=== PATIENT | male | born 1990 ===

== ENCOUNTER 2018-01-16 22:23 | Inpatient (IN) | payer MEDICAID, OTHER ==
--- NOTE | 2018-01-16 23:11 | C.PDOC ---
History Of Present Illness Patient was transferred from [facility] for psychiatric admission. Patient has Hx of schizophrenia. Denies any physical complaints. Time Seen by Provider: 01/16/18 22:34 Chief Complaint (Nursing): Psychiatric Evaluation History Per: Patient History/Exam Limitations: no limitations Onset/Duration Of Symptoms: Hrs Current Symptoms Are (Timing): Still Present Suicide/Self Injury Attempted (Context): None Modifying Factor(s): None Associated Symptoms: denies: Suicidal Thoughts, Suicidal Plan Involuntary Hold By: None Recent travel outside of the [place]: No Past Medical History Reviewed: Historical Data, Nursing Documentation, Vital Signs Vital Signs: Last Vital Signs Temp 98.1 F 01/17/18 06:26 Pulse 94 H 01/17/18 16:29 Resp 18 01/17/18 06:26 BP 134/89 01/17/18 16:29 Pulse Ox 99 01/17/18 00:17 - Medical History PMH: Schizophrenia Surgical History: No Surg Hx Family History: States: No Known Family Hx - Social History Hx Alcohol Use: Yes Hx Substance Use: No Review Of Systems Constitutional: Negative for: Fever, Chills Gastrointestinal: Negative for: Nausea, Vomiting, Diarrhea Skin: Negative for: Rash Neurological: Negative for: Weakness, Numbness Psych: Negative for: Suicidal ideation Physical Exam - Physical Exam Appears: Well, Non-toxic, No Acute Distress, Other (Calm and cooperative) Skin: Normal Color, Warm, Dry Head: Atraumatic, Normacephalic Eye(s): bilateral: Normal Inspection Oral Mucosa: Moist Neck: Supple Chest: Symmetrical, No Tenderness Cardiovascular: Rhythm Regular Respiratory: No Decreased Breath Sounds, No Rales, No Rhonchi, No Wheezing Gastrointestinal/Abdominal: Soft, No Tenderness Extremity: Normal ROM, No Deformity Extremity: Bilateral: Normal Color And Temperature, Normal ROM Neurological/Psych: Oriented x3, Normal Speech, Normal Cognition, Other (no focal deficits ) Gait: Steady ED Course And Treatment O2 Sat by Pulse Oximetry: 99 (RA) Pulse Ox Interpretation: Normal Disposition Doctor Will See Patient In The: Hospital Counseled Patient/Family Regarding: Studies Performed, Diagnosis - Disposition Disposition: HOSPITALIZED Disposition Time: 17:00 Condition: GOOD - Clinical Impression Clinical Impression: Schizophrenia - Scribe Statement The provider has reviewed the documentation as recorded by the Leonardoibjustin Rooney All medical record entries made by the Scribe were at my direction and personally dictated by me. I have reviewed the chart and agree that the record accurately reflects my personal performance of the history, physical exam, medical decision making, and the department course for this patient. I have also personally directed, reviewed, and agree with the discharge instructions and disposition.
--- NOTE | 2018-01-17 03:51 | PCM.BM ---
<Concepcion Aden - Last Filed: 01/17/18 03:44> Treatment Plan Problems - Problems identified on initial assessmt Depression Date Initiated: 01/17/18 Time Initiated: 00:45 Assessment reference: NA Status: Active Treatment assets and liabiliti Patient Assests: physically healthy, good support system, negotiates basic needs - Milieu Protocol Maintain good personal hygiene: daily Encourage regular showers, daily Remind patient to perform daily oral care, every shift Assist patient to perform ADL's Conduct patient checks and document Observation sheet: Q15 minutes Maintain personal safety: every shift Educate patient to report safety concerns to staff, every shift Monitor environment for contraband/sharps Medication safety: Monitor for expected outcome, potential side effects: every shift, Assess barriers to learning: every shift, Assess readiness for medication education: every shift <Jono Smith - Last Filed: 01/18/18 19:08> - Diagnosis (1) Schizoaffective disorder Status: Acute Interventions: * Assess/adjust medications daily and /or as needed * See patient on an individual basis 7x/week to assess status of hallucinations * Discuss risks, benefits, side effects and alternatives of medications * <Tiesha Wagner - Last Filed: 01/19/18 11:24> Family Contact Family involvement: Family/SO is involved Family contact: Patient declines to allow family contact at present - Goals for Treatment Patient goals for treatment: "I want to feel better." Discharge/Continuing Care - Education Needs Education Needs: Patient Medication, Patient Coping Skills - Discharge Discharge Criteria: Tolerates medication w/o severe side effects, No longer exhibiting s/s of withdrawal, Reduction of target symptoms Discharge to:: Home - Treatment Team Participation Discussed with Family/SO: No Was Patient/Family/SO present at Treatment Team Meeting: Yes
--- NOTE | 2018-01-17 13:22 | PCM.PSYCH ---
Initial Psychiatric Evaluation - Initial Psychiatric Evaluation Type of Admission: Voluntary Legal Status: Capacity Chief Complaint (in patient's own words): "Anxious" History of Present Illness and Precipitating Events: The patient is seen, chart reviewed and case discussed. This is a 27-year-old male, single with no child and lives with his mother now. He says he came from [place]. He is unemployed. The patient is here for severe anxiety and depression for the past month or more. He feels like he was a burden on his family and he felt suicidal. He denies suicidal feeling right now but he feels paranoid and very anxious. He is not on any psychiatric medications. He denies drugs and alcohol use. Past psych history: No admissions no suicide attempts but he was diagnosed with ADHD and saw a psychiatrist, mary Box. There was a report that the patient was diagnosed with high functioning autism, but patient denies Family psych history: Uncle with schizophrenia Medical history: Denies Current Medications: Active Medications Generic Name Dose Route Start Last Admin Trade Name Freq PRN Reason Stop Dose Admin Escitalopram Oxalate 5 mg 01/17/18 10:00 01/17/18 10:07 Lexapro PO 5 mg DAILY ECTOR Administration Hydroxyzine HCl 25 mg 01/17/18 09:11 Atarax PO Q4H PRN Anxiety Ibuprofen 400 mg 01/17/18 09:11 Motrin Tab PO Q6H PRN Pain, moderate (4-7) Trazodone HCl 50 mg 01/17/18 09:11 Desyrel PO HS PRN Insomnia Past Psychiatric History - Past Psychiatric History Previous Treatment History: None Pertinent Medical Hx (Current Medical&Sleep Prob, Allergies): Allergies Allergy/AdvReac Type Severity Reaction Status Date / Time No Known Allergies Allergy Verified 01/16/18 22:30 No Known Home Med 01/16/18 Review of Systems - Psychiatric Psychiatric: Abnormal Sleep Pattern, Anxiety, Change in Appetite, Depression, Difficulty Concentrating. absent: Hallucinations, Homicidal Ideation, Suicidal Ideation Mental Status Examination - Personal Presentation Personal Presentation: Looks younger than stated age - Affect Affect: Constricted (odd) - Motor Activity Motor Activity: Calm - Reliability in Providing Information Reliability in Providing Information: Fair - Speech Speech: Organized - Mood Mood: Depressed, Anxious - Formal Thought Process Formal Thought Process: Paranoia - Cognitive Functions Orientation: Person, Place, Situation, Time Sensorium: Alert Attention/Concentration: Easily distracted Abstract Thinking: [place] Estimate of Intelligence: Average Judgement: Intact, as evidence by: Insight regarding need for hospitalization Memory: Recent intact, as evidence by: Ability to recall events of the day, Remote intact, as evidenced by: Abilit to recall sig. life events - Risk Risk: Diminished functioning - Strength & Assets Inventory Strength & Assets Inventory: Cooperative - Limitations Limitations: Living alone DSM 5 DX - DSM 5 DSM 5 Diagnosis: Schizoaffective d/o - depressed ADHD r/o ASD - Recommended/Plan of Treatment Treatment Recommendations and Plan of Treatment: Start lexapro and also abilify or zyprexa Prn medications All risks, benefits and alternatives of medications, including no medications, discussed and the patient understood and agreed. Attend groups and activities Individual therapy Psychoeducation and support Encourage compliance with meds and after care Refer to outpatient program Teach healthy lifestyle methods, i.e. diet, exercise, meditation Smoking cessation 32 min Projected ELOS: 6-7 days Prognosis: good w treatment
--- NOTE | 2018-01-18 21:34 | PCM.PYCHPN ---
Psychiatric Progress Note - Psychiatric Progress Note Patient seen today, length of contact: 16 min Patient Chief Complaint: "I am confused" Problems Identified/Issues Discussed: The pt is seen, chart reviewed, case discussed with staff. The pt is compliant with medications and but feels like lexapro is making him worse (took one dose) He asks odd questions like "why is no one going to rastafari here? (locked psych unit!) or "I see people are all wearing black, why?" (they are not wearing black ) Affect is odd, inappropriate, grimaces. Needs more time to stabilize. After care discussed, support and psychoeducation given. Zyprexa started Medication Change: Yes (zyprexa started, cynthia. stopped) Medical Record Reviewed: Yes Mental Status Examination - Cognitive Function Orientation: Person, Place, Situation, Time Memory: Impaired Attention: Poor Concentration: Poor Association: Loose Fund of Knowledge: Poor - Mood Mood: Depressed, Anxious - Affect Affect: Constricted (odd) - Speech Speech: Appropriate - Formal Thought Process Formal Thought Process: Delusions, Paranoia - Suicidal Ideation Suicidal Ideation: No - Homicidal Ideation Homicidal Ideation: No Goal/Treatment Plan - Goal/Treatment Plan Need for Continued Stay: Discharge may exacerbated symptoms, Severe functional impairment Progress Toward Problem(s) and Goals/Treatment Plan: Start zyprexa, d/c lexapro Prn medications All risks, benefits and alternatives of medications, including no medications, discussed and the patient understood and agreed. Attend groups and activities Individual therapy Psychoeducation and support Encourage compliance with meds and after care Refer to outpatient program Teach healthy lifestyle methods, i.e. diet, exercise, meditation Smoking cessation
--- NOTE | 2018-01-19 11:24 | PCM.PYCHPN ---
Psychiatric Progress Note - Psychiatric Progress Note Patient seen today, length of contact: 16 min Patient Chief Complaint: Patient states that he is afraid someone is accessing his mind through broadcasted waves and that the FBI is after him. Problems Identified/Issues Discussed: Patient seen and evaluated, chart reviewed and discussed with the nurse. Patient remained disorganized and internally preoccupied. Patient still appears paranoid and delusional. He states that he is afraid someone is accessing his mind through broadcasted waves and that the FBI is after him. He also complains of restless sleep with nightmares and loss of focus during the day. Patient states that he is considering attending a congregational to help ease his thoughts. Patient remained isolated, confined and withdrawn. Patient is compliant with medications and denies any side effects. Symptoms are improving but need more time to stabilize. Support and psychoeducation given. Medication Change: Yes (increase zyprexa, start depakote) Medical Record Reviewed: Yes Mental Status Examination - Cognitive Function Orientation: Person, Place, Situation, Time Memory: Impaired Attention: Poor Concentration: Poor Association: Loose Fund of Knowledge: Poor - Mood Mood: Depressed, Anxious - Affect Affect: Constricted (odd) - Speech Speech: Appropriate - Formal Thought Process Formal Thought Process: Hallucinations, Delusions, Paranoia, Loosening of associations - Suicidal Ideation Suicidal Ideation: No - Homicidal Ideation Homicidal Ideation: No Goal/Treatment Plan - Goal/Treatment Plan Need for Continued Stay: Discharge may exacerbated symptoms, Severe functional impairment Progress Toward Problem(s) and Goals/Treatment Plan: Schizoaffective d/o - depressed ADHD r/o ASD Increase olanzapine 5 mg PO BID Start Depakote 250 mg PO BID Start Klonopin 1 mg PO BID Prn medications All risks, benefits and alternatives of medications, including no medications, discussed and the patient understood and agreed. Attend groups and activities Individual therapy Psychoeducation and support Encourage compliance with meds and after care Refer to outpatient program Teach healthy lifestyle methods, i.e. diet, exercise, meditation Smoking cessation - Smoking Cessation Smoking Cessation Initiated: No
[2018-01-20] MEDS: Divalproex 250 mg DR Tab PO SCH ×2 (09:52→17:24)
--- NOTE | 2018-01-20 10:52 | PCM.PYCHPN ---
Psychiatric Progress Note - Psychiatric Progress Note Patient seen today, length of contact: 16 min Patient Chief Complaint: Patient states that he is afraid someone is accessing his mind through broadcasted waves and that the FBI is after him. Problems Identified/Issues Discussed: Patient seen and evaluated, chart reviewed and discussed with the nurse. Patient is still disorganized and internally preoccupied after starting Depakote and Klonopin. Patient is still paranoid and delusional but less talkative than yesterday. He is complaining of stomach pain and believe it is from the new medication but denies nausea, vomiting, and diarrhea. He still feels he is being monitored but looks off into space when questioned further about his thoughts and disposition. Patient remained isolated, confined and withdrawn. Patient is compliant with medications. Symptoms are improving but need more time to stabilize. Support and psychoeducation given. Medication Change: Yes (increase zyprexa, start depakote) Medical Record Reviewed: Yes Mental Status Examination - Cognitive Function Orientation: Person, Place, Situation, Time Memory: Impaired Attention: Poor Concentration: Poor Association: Loose Fund of Knowledge: Poor - Mood Mood: Depressed, Anxious - Affect Affect: Constricted (odd) - Speech Speech: Soft, Pressured - Formal Thought Process Formal Thought Process: Hallucinations, Delusions, Paranoia, Loosening of associations - Suicidal Ideation Suicidal Ideation: No - Homicidal Ideation Homicidal Ideation: No Goal/Treatment Plan - Goal/Treatment Plan Need for Continued Stay: Discharge may exacerbated symptoms, Severe functional impairment Progress Toward Problem(s) and Goals/Treatment Plan: Schizoaffective d/o - depressed ADHD r/o ASD Continue medications olanzapine 5 mg PO BID Depakote 250 mg PO BID Klonopin 1 mg PO BID Prn medications All risks, benefits and alternatives of medications, including no medications, discussed and the patient understood and agreed. Attend groups and activities Individual therapy Psychoeducation and support Encourage compliance with meds and after care Refer to outpatient program Teach healthy lifestyle methods, i.e. diet, exercise, meditation Smoking cessation
[2018-01-21] MEDS: Divalproex 250 mg DR Tab PO SCH ×2 (10:24→17:22)
--- NOTE | 2018-01-21 10:57 | PCM.PYCHPN ---
Psychiatric Progress Note - Psychiatric Progress Note Patient seen today, length of contact: 16 min Patient Chief Complaint: Patient states that he is afraid someone is accessing his mind through broadcasted waves and that the FBI is after him. Problems Identified/Issues Discussed: Patient seen and evaluated, chart reviewed and discussed with the nurse. Patient remained isolated, confined and withdrawn. Patient remained disorganized and internally preoccupied. Patient states he has not had any side effects from the medications. Patient is compliant with medications. Symptoms are improving but need more time to stabilize. Support and psychoeducation given. Medication Change: Yes (increase zyprexa, start depakote) Medical Record Reviewed: Yes Mental Status Examination - Cognitive Function Orientation: Person, Place, Situation, Time Memory: Impaired Attention: Poor Concentration: Poor Association: Loose Fund of Knowledge: Poor - Mood Mood: Depressed, Anxious - Affect Affect: Constricted (odd) - Speech Speech: Soft, Pressured - Formal Thought Process Formal Thought Process: Hallucinations, Delusions, Paranoia, Loosening of associations - Suicidal Ideation Suicidal Ideation: No - Homicidal Ideation Homicidal Ideation: No Goal/Treatment Plan - Goal/Treatment Plan Need for Continued Stay: Discharge may exacerbated symptoms, Severe functional impairment Progress Toward Problem(s) and Goals/Treatment Plan: Schizoaffective d/o - depressed ADHD r/o ASD Continue medications olanzapine 5 mg PO BID Depakote 250 mg PO BID Klonopin 1 mg PO BID Prn medications All risks, benefits and alternatives of medications, including no medications, discussed and the patient understood and agreed. Attend groups and activities Individual therapy Psychoeducation and support Encourage compliance with meds and after care Refer to outpatient program Teach healthy lifestyle methods, i.e. diet, exercise, meditation Smoking cessation
[2018-01-22] MEDS: Divalproex 250 mg DR Tab PO SCH (09:51)
--- NOTE | 2018-01-22 11:36 | PCM.PYCHPN ---
Psychiatric Progress Note - Psychiatric Progress Note Patient seen today, length of contact: 16 min Patient Chief Complaint: Patient states that he is afraid someone is accessing his mind through broadcasted waves and that the FBI is after him. Problems Identified/Issues Discussed: Patient seen and evaluated, chart reviewed and discussed with the nurse. Patient appears more organized and less internally preoccupied. Patient started coming out of his room and started socializing. Patient is compliant with medications. Symptoms are improving but need more time to stabilize. Support and psychoeducation given. Medication Change: Yes (d/c zyprexa, start Prolixin) Medical Record Reviewed: Yes Mental Status Examination - Cognitive Function Orientation: Person, Place, Situation, Time Memory: Impaired Attention: WNL Concentration: Poor Association: Loose Fund of Knowledge: Poor - Mood Mood: Depressed, Anxious - Affect Affect: Constricted (odd) - Speech Speech: Soft, Pressured - Formal Thought Process Formal Thought Process: Hallucinations, Delusions, Paranoia, Loosening of associations - Suicidal Ideation Suicidal Ideation: No - Homicidal Ideation Homicidal Ideation: No Goal/Treatment Plan - Goal/Treatment Plan Need for Continued Stay: Discharge may exacerbated symptoms, Severe functional impairment Progress Toward Problem(s) and Goals/Treatment Plan: Schizoaffective d/o - depressed ADHD r/o ASD Continue medications D/C Olanzapine 5 mg PO BID Start Prolixin 5 mg PO BID Increase Depakote 500 mg PO BID D/C Klonopin 1 mg PO BID Prn medications All risks, benefits and alternatives of medications, including no medications, discussed and the patient understood and agreed. Attend groups and activities Individual therapy Psychoeducation and support Encourage compliance with meds and after care Refer to outpatient program Teach healthy lifestyle methods, i.e. diet, exercise, meditation Smoking cessation - Smoking Cessation Smoking Cessation Initiated: No
[2018-01-22] MEDS: Divalproex 500 mg DR Tab PO SCH (18:00)
[2018-01-23] MEDS: Divalproex 500 mg DR Tab PO SCH ×2 (10:43→17:36)
--- NOTE | 2018-01-23 11:31 | PCM.PYCHPN ---
Psychiatric Progress Note - Psychiatric Progress Note Patient seen today, length of contact: 16 min Patient Chief Complaint: Patient states that he is afraid someone is accessing his mind through broadcasted waves and that the FBI is after him. Problems Identified/Issues Discussed: Patient seen and evaluated, chart reviewed and discussed with the nurse. Patient appears more organized and less internally preoccupied. Patient has been socializing with other patients. He expresses interest in physics concepts and states he wishes to speak to a professor if he could. Patient is compliant with medications. Symptoms are improving but need more time to stabilize. Support and psychoeducation given. Medication Change: Yes (increase Prolixin) Medical Record Reviewed: Yes Mental Status Examination - Cognitive Function Orientation: Person, Place, Situation, Time Memory: Impaired Attention: WNL Concentration: Poor Association: Loose Fund of Knowledge: Poor - Mood Mood: Depressed, Anxious - Affect Affect: Constricted (odd) - Speech Speech: Soft, Pressured - Formal Thought Process Formal Thought Process: Hallucinations, Delusions, Paranoia, Loosening of associations - Suicidal Ideation Suicidal Ideation: No - Homicidal Ideation Homicidal Ideation: No Goal/Treatment Plan - Goal/Treatment Plan Need for Continued Stay: Discharge may exacerbated symptoms, Severe functional impairment Progress Toward Problem(s) and Goals/Treatment Plan: Schizoaffective d/o - depressed ADHD r/o ASD Continue medications Prolixin 10 mg PO BID Depakote 500 mg PO BID Prn medications All risks, benefits and alternatives of medications, including no medications, discussed and the patient understood and agreed. Attend groups and activities Individual therapy Psychoeducation and support Encourage compliance with meds and after care Refer to outpatient program Teach healthy lifestyle methods, i.e. diet, exercise, meditation Smoking cessation - Smoking Cessation Smoking Cessation Initiated: No
[2018-01-24] MEDS: Divalproex 500 mg DR Tab PO SCH ×2 (09:20→17:42)
--- NOTE | 2018-01-24 17:21 | PCM.PYCHPN ---
Psychiatric Progress Note - Psychiatric Progress Note Patient seen today, length of contact: 16 min Patient Chief Complaint: "Do you believe in free will?" Problems Identified/Issues Discussed: The pt is seen, chart reviewed, case discussed with staff. He is improving but still preoccupied with odd and metaphysical stuff and shinto. Compliant with meds - no SEs Psychoed and support given Medication Change: No Medical Record Reviewed: Yes Mental Status Examination - Cognitive Function Orientation: Person, Place, Situation, Time Memory: Impaired Attention: WNL Concentration: Poor Association: Loose Fund of Knowledge: Poor - Mood Mood: Depressed, Anxious - Affect Affect: Constricted (odd) - Speech Speech: Soft - Formal Thought Process Formal Thought Process: Delusions, Paranoia, Loosening of associations - Suicidal Ideation Suicidal Ideation: No - Homicidal Ideation Homicidal Ideation: No Goal/Treatment Plan - Goal/Treatment Plan Need for Continued Stay: Discharge may exacerbated symptoms, Severe functional impairment Progress Toward Problem(s) and Goals/Treatment Plan: Continue meds Prn medications All risks, benefits and alternatives of medications, including no medications, discussed and the patient understood and agreed. Attend groups and activities Individual therapy Psychoeducation and support Encourage compliance with meds and after care Refer to outpatient program Teach healthy lifestyle methods, i.e. diet, exercise, meditation Smoking cessation
[2018-01-25] MEDS: Divalproex 500 mg DR Tab PO SCH ×2 (09:05→18:18)
[2018-01-26] MEDS: Divalproex 500 mg DR Tab PO SCH ×2 (09:10→17:25)
--- NOTE | 2018-01-26 09:11 | PCM.PYCHPN ---
Psychiatric Progress Note - Psychiatric Progress Note Patient seen today, length of contact: 16 min Patient Chief Complaint: I AM LESS DEPRESSED BUT I STILL ANXIOUS Problems Identified/Issues Discussed: PT SEEN AND EXAMINED DISCUSSED WITH STAFF NON ADHERENCE MEDICATION SIDE EFFECTS Medical Problems: NOTHING ACUTE Diagnostic Results: REVIEWED DSM 5 Symptoms Update: ANHEDONIV ANERGIC AVOLITION Medication Change: No Medical Record Reviewed: Yes Mental Status Examination - Cognitive Function Orientation: Person, Place, Situation, Time Memory: Intact, Impaired Attention: WNL Concentration: Poor Association: WNL Fund of Knowledge: WNL - Mood Mood: Depressed, Anxious - Speech Speech: Soft - Formal Thought Process Formal Thought Process: Delusions, Paranoia, Loosening of associations - Suicidal Ideation Suicidal Ideation: No - Homicidal Ideation Homicidal Ideation: No Goal/Treatment Plan - Goal/Treatment Plan Need for Continued Stay: Discharge may exacerbated symptoms, Severe functional impairment Progress Toward Problem(s) and Goals/Treatment Plan: SCHIZOAFFECTIVE DISORDER PROLIXIN DEPAKOTE CBT ND SUPPORTIVE PSYCHOTHERAPY Estimated Date of D/C: 01/28/18 - Smoking Cessation Smoking Cessation Initiated: Yes
--- NOTE | 2018-01-26 09:39 | PCM.PYCHPN ---
Psychiatric Progress Note - Psychiatric Progress Note Patient seen today, length of contact: 16 min Patient Chief Complaint: Patient states that he has been thinking a lot about "free will," splitting prime numbers, and trying to make new discoveries in math and astrophysics. Problems Identified/Issues Discussed: Patient seen and evaluated, chart reviewed and discussed with the nurse. Patient appears more organized and less internally preoccupied. Patient has been socializing with other patients. He expresses interest in physics concepts and states he wishes to speak to a professor if he could. Patient is compliant with medications. Symptoms are improving but need more time to stabilize. Support and psychoeducation given. Medication Change: No Medical Record Reviewed: Yes Mental Status Examination - Cognitive Function Orientation: Person, Place, Situation, Time Memory: Intact, Impaired Attention: WNL Concentration: Poor Association: WNL Fund of Knowledge: WNL - Mood Mood: Depressed, Anxious - Affect Affect: Constricted (odd) - Speech Speech: Soft - Formal Thought Process Formal Thought Process: Delusions, Paranoia, Loosening of associations - Suicidal Ideation Suicidal Ideation: No - Homicidal Ideation Homicidal Ideation: No Goal/Treatment Plan - Goal/Treatment Plan Need for Continued Stay: Discharge may exacerbated symptoms, Severe functional impairment Progress Toward Problem(s) and Goals/Treatment Plan: Schizoaffective d/o - depressed ADHD r/o ASD Continue medications Prolixin 10 mg PO BID Depakote 500 mg PO BID Prn medications All risks, benefits and alternatives of medications, including no medications, discussed and the patient understood and agreed. Attend groups and activities Individual therapy Psychoeducation and support Encourage compliance with meds and after care Refer to outpatient program Teach healthy lifestyle methods, i.e. diet, exercise, meditation Smoking cessation Estimated Date of D/C: 01/28/18
--- NOTE | 2018-01-26 17:21 | PCM.BM ---
<Jennifer Wright - Last Filed: 01/26/18 17:21> Treatment Plan Problems - Problems identified on initial assessmt Depression Date Initiated: 01/17/18 Time Initiated: 00:45 Assessment reference: NA Status: Active Treatment assets and liabiliti Patient Assests: physically healthy, good support system, negotiates basic needs - Milieu Protocol Maintain good personal hygiene: daily Encourage regular showers, daily Remind patient to perform daily oral care, every shift Assist patient to perform ADL's Conduct patient checks and document Observation sheet: Q15 minutes Maintain personal safety: every shift Educate patient to report safety concerns to staff, every shift Monitor environment for contraband/sharps Medication safety: Monitor for expected outcome, potential side effects: every shift, Assess barriers to learning: every shift, Assess readiness for medication education: every shift Milieu Narrative: Schizoaffective d/o - depressed ADHD r/o ASD Continue medications Prolixin 10 mg PO BID Depakote 500 mg PO BID Prn medications All risks, benefits and alternatives of medications, including no medications, discussed and the patient understood and agreed. Attend groups and activities Individual therapy Psychoeducation and support Encourage compliance with meds and after care Refer to outpatient program Teach healthy lifestyle methods, i.e. diet, exercise, meditation Smoking cessation Family Contact Family involvement: Family/SO is involved Family contact: Patient declines to allow family contact at present - Goals for Treatment Patient goals for treatment: "I want to feel better." Discharge/Continuing Care - Education Needs Education Needs: Patient Medication, Patient Coping Skills - Discharge Discharge Criteria: Tolerates medication w/o severe side effects, No longer exhibiting s/s of withdrawal, Reduction of target symptoms Discharge to:: Home - Treatment Team Participation Patient/Family/SO Statement: Schizoaffective d/o - depressed ADHD r/o ASD Continue medications Prolixin 10 mg PO BID Depakote 500 mg PO BID Prn medications All risks, benefits and alternatives of medications, including no medications, discussed and the patient understood and agreed. Attend groups and activities Individual therapy Psychoeducation and support Encourage compliance with meds and after care Refer to outpatient program Teach healthy lifestyle methods, i.e. diet, exercise, meditation Smoking cessation Discussed with Family/SO: No Was Patient/Family/SO present at Treatment Team Meeting: Yes Treatment Plan Review - Problem Depression Time Initiated: 00:45 - Discharge / Continuing Care Discharge to:: Home, With Family Behavioral Health Services: Outpatient therapy Health Needs: Follow up care/test, Medications/Rx <Juanjo,Hien - Last Filed: 01/28/18 10:39> - Diagnosis (1) Schizoaffective disorder Status: Acute Interventions: * Assess/adjust medications daily and /or as needed * See patient on an individual basis 7x/week to assess status of hallucinations * Discuss risks, benefits, side effects and alternatives of medications *
[2018-01-27 06:51] VITALS: O2SAT 100
[2018-01-27] MEDS: Divalproex 500 mg DR Tab PO SCH ×2 (10:28→18:00)
--- NOTE | 2018-01-27 14:45 | PCM.PYCHPN ---
Psychiatric Progress Note - Psychiatric Progress Note Patient seen today, length of contact: 16 min Patient Chief Complaint: Patient states that he has been thinking a lot about "free will," splitting prime numbers, and trying to make new discoveries in math and astrophysics. Problems Identified/Issues Discussed: Patient seen and evaluated, chart reviewed and discussed with the nurse. Patient appears more organized and less internally preoccupied. He often stands in the hallway looking into space, but has been socializing with other patients more. He mentions that he "had a normal conversation" with a staff member yesterday and asks if he should try socializing more. He states he will work on not thinking about the idea of aliens so much. Patient is compliant with medications. Symptoms are improving but need more time to stabilize. Support and psychoeducation given. Medication Change: No Medical Record Reviewed: Yes Mental Status Examination - Cognitive Function Orientation: Person, Place, Situation, Time Memory: Intact, Impaired Attention: WNL Concentration: Poor Association: WNL Fund of Knowledge: WNL - Mood Mood: Depressed, Anxious - Affect Affect: Constricted (odd) - Speech Speech: Soft - Formal Thought Process Formal Thought Process: Delusions, Paranoia, Loosening of associations - Suicidal Ideation Suicidal Ideation: No - Homicidal Ideation Homicidal Ideation: No Goal/Treatment Plan - Goal/Treatment Plan Need for Continued Stay: Discharge may exacerbated symptoms, Severe functional impairment Progress Toward Problem(s) and Goals/Treatment Plan: Schizoaffective d/o - depressed ADHD r/o ASD Continue medications Prolixin 10 mg PO BID Depakote 500 mg PO BID Prn medications All risks, benefits and alternatives of medications, including no medications, discussed and the patient understood and agreed. Attend groups and activities Individual therapy Psychoeducation and support Encourage compliance with meds and after care Refer to outpatient program Teach healthy lifestyle methods, i.e. diet, exercise, meditation Smoking cessation Estimated Date of D/C: 01/28/18
[2018-01-28] MEDS: Divalproex 500 mg DR Tab PO SCH ×2 (09:44→18:26)
[2018-01-28] MEDS ORDERED: fluPHENAZine Decanoate 25 mg/mL Inj(5ml) IM ONE (10:39)
--- NOTE | 2018-01-28 10:40 | PCM.PYCHPN ---
Psychiatric Progress Note - Psychiatric Progress Note Patient seen today, length of contact: 16 min Patient Chief Complaint: Patient states that he has been thinking a lot about "free will," splitting prime numbers, and trying to make new discoveries in math and astrophysics. Problems Identified/Issues Discussed: Patient seen and evaluated, chart reviewed and discussed with the nurse. Patient appears more organized and less internally preoccupied. Patient is slightly more anxious today, expressing interest in finding a job when he gets out because he does not want to be a burden on hism other. He has been socializing with other patients and has been open to conversation about how he can pay less attention to the voices in his head Patient is compliant with medications and denies any side effects. Symptoms are improving but need more time to stabilize. Support and psychoeducation given. Medication Change: No Medical Record Reviewed: Yes Mental Status Examination - Cognitive Function Orientation: Person, Place, Situation, Time Memory: Intact, Impaired Attention: WNL Concentration: Poor Association: WNL Fund of Knowledge: WNL - Mood Mood: Anxious - Affect Affect: Constricted (odd) - Speech Speech: Soft - Formal Thought Process Formal Thought Process: Delusions, Paranoia, Loosening of associations - Suicidal Ideation Suicidal Ideation: No - Homicidal Ideation Homicidal Ideation: No Goal/Treatment Plan - Goal/Treatment Plan Need for Continued Stay: Discharge may exacerbated symptoms, Severe functional impairment Progress Toward Problem(s) and Goals/Treatment Plan: Schizoaffective d/o - depressed ADHD r/o ASD Continue medications Prolixin 10 mg PO BID Depakote 500 mg PO BID Prn medications All risks, benefits and alternatives of medications, including no medications, discussed and the patient understood and agreed. Attend groups and activities Individual therapy Psychoeducation and support Encourage compliance with meds and after care Refer to outpatient program Teach healthy lifestyle methods, i.e. diet, exercise, meditation Smoking cessation Estimated Date of D/C: 01/28/18
[2018-01-29] MEDS: Divalproex 500 mg DR Tab PO SCH ×2 (09:39→17:14)
[2018-01-30] MEDS: Divalproex 500 mg DR Tab PO SCH ×2 (09:56→17:04)
--- NOTE | 2018-01-30 10:06 | PCM.PYCHPN ---
Psychiatric Progress Note - Psychiatric Progress Note Patient seen today, length of contact: 16 min Patient Chief Complaint: Patient states that he has been thinking a lot about "free will," splitting prime numbers, and trying to make new discoveries in math and astrophysics. Problems Identified/Issues Discussed: Patient seen and evaluated, chart reviewed and discussed with the nurse. Patient appears more organized and less internally preoccupied. He states his running thoughts about extraterrestrials and alien technology have lessened. He feels he has gotten better at ignoring the thoughts when he does get them. He still complains of nightmares but states he is able to sleep them off. He states he would like to go home to his mother's apartment (she is currently out of the state) where he can have access to a computer and start looking for jobs and to work on his programming skills. He feels there is not much to do in his room and would like to be productive. Patient is compliant with medications and denies any side effects. Symptoms are improving but need more time to stabilize. Support and psychoeducation given. Medication Change: No Medical Record Reviewed: Yes Mental Status Examination - Cognitive Function Orientation: Person, Place, Situation, Time Memory: Intact, Impaired Attention: WNL Concentration: Poor Association: WNL Fund of Knowledge: WNL - Mood Mood: Anxious - Affect Affect: Constricted (odd) - Speech Speech: Soft - Formal Thought Process Formal Thought Process: Delusions, Loosening of associations - Suicidal Ideation Suicidal Ideation: No - Homicidal Ideation Homicidal Ideation: No Goal/Treatment Plan - Goal/Treatment Plan Need for Continued Stay: Discharge may exacerbated symptoms, Severe functional impairment Progress Toward Problem(s) and Goals/Treatment Plan: Schizoaffective d/o - depressed ADHD r/o ASD Continue medications Prolixin 10 mg PO BID Depakote 500 mg PO BID Prn medications All risks, benefits and alternatives of medications, including no medications, discussed and the patient understood and agreed. Attend groups and activities Individual therapy Psychoeducation and support Encourage compliance with meds and after care Refer to outpatient program Teach healthy lifestyle methods, i.e. diet, exercise, meditation Smoking cessation Estimated Date of D/C: 01/28/18
[2018-01-31] MEDS: Divalproex 500 mg DR Tab PO SCH ×2 (09:00→17:07)
--- NOTE | 2018-01-31 23:34 | PCM.PYCHPN ---
Psychiatric Progress Note - Psychiatric Progress Note Patient seen today, length of contact: 16 min Medication Change: No Medical Record Reviewed: Yes Mental Status Examination - Cognitive Function Orientation: Person, Place, Situation, Time Memory: Intact, Impaired Attention: WNL Concentration: Poor Association: WNL Fund of Knowledge: WNL - Mood Mood: Anxious - Affect Affect: Constricted (odd) - Speech Speech: Soft - Formal Thought Process Formal Thought Process: Delusions, Loosening of associations - Suicidal Ideation Suicidal Ideation: No - Homicidal Ideation Homicidal Ideation: No Goal/Treatment Plan - Goal/Treatment Plan Need for Continued Stay: Discharge may exacerbated symptoms, Severe functional impairment Estimated Date of D/C: 01/28/18
[2018-02-01] MEDS: Divalproex 500 mg DR Tab PO SCH ×2 (09:01→17:24)
[2018-02-02] MEDS: Divalproex 500 mg DR Tab PO SCH ×2 (10:10→17:05)
[2018-02-03 06:42] VITALS: BP 142/79; PULSE 111; RESP 19; TEMP 98.5
[2018-02-03] MEDS: Divalproex 500 mg DR Tab PO SCH (09:52)
--- NOTE | 2018-02-03 10:20 | PCM.PYCHDC ---
Mental Status Examination - Mental Status Examination Orientation: Person, Place, Situation, Time Memory: Intact Mood: Neutral Affect: Constricted Speech: Soft Attention: WNL Concentration: WNL Association: WNL Fund of Knowledge: WNL Formal Thought Process: No Impairment Description of patient's judgement and insight: good, fair Psychotic Thoughts and Behaviors: denies any AVH Suicidal Ideation: No Current Homicidal Ideation?: No Discharge Summary - Discharge Note Consultations:: List each consultation separately and include: 1. Reason for request. 2. Findings. 3. Follow-up Summary of Hospital Course include:: 1. Description of specific treatment plan utilized for patients during their course of treatmen. 2. Summarize the time- course for resolution of acute symptoms and/or regressed behaviors. 3. Describe issues identified and worked on during hospitalization. 4. Describe medication utilized. 5. Describe medical problems identified and treated. 6. Reassessment of suicide risk - Diagnosis (1) Schizoaffective disorder Current Visit: Yes Status: Acute - Final Diagnosis (DSM 5) Condition upon Discharge: GOOD Disposition: HOME/ ROUTINE Follow-up Treatment Plan: Schizoaffective d/o - depressed ADHD r/o ASD Continue medications Prolixin 10 mg PO BID Depakote 500 mg PO BID Prn medications All risks, benefits and alternatives of medications, including no medications, discussed and the patient understood and agreed. Attend groups and activities Individual therapy Psychoeducation and support Encourage compliance with meds and after care Refer to outpatient program Teach healthy lifestyle methods, i.e. diet, exercise, meditation Smoking cessation Prescriptions/Medication Reconciliation: Benztropine [Cogentin] 1 mg PO BID #60 tab Divalproex [Depakote DR] 500 mg PO BID #60 tcp fluPHENAZine [Prolixin] 10 mg PO BID #60 tab QUEtiapine [Seroquel] 100 mg PO HS #30 tab
== END 2018-02-03 14:16 | disposition home or self-care (01) | DRG 430 ==
LOC: C.ER 22:23 → C.5E 22:36 → C.9E 22:36 → C.5E 01-22 11:52
PROVIDERS: ADMIT Psychiatry & Neurology Psychiatry; ATTEND Psychiatry & Neurology Psychiatry
PROC: GZHZZZZ Group Psychotherapy (ICD-10-PCS; principal; 2018-01-16)
PROC: GZ56ZZZ Individual Psychotherapy, Supportive (ICD-10-PCS; 2018-01-16)
PROC: GZ58ZZZ Individual Psychotherapy, Cognitive-Behavioral (ICD-10-PCS; 2018-01-16)
DX: F25.1 Schizoaffective disorder, depressive type (principal); F41.9 Anxiety disorder, unspecified; F90.9 Attention-deficit hyperactivity disorder, unspecified type; Z81.8 Family history of other mental and behavioral disorders